=== PATIENT | male | born 2000 | race Caucasian/White ===

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

== ENCOUNTER 2022-05-06 08:38 | Emergency (ER) | payer OTHER ==
[2022-05-06 08:46] VITALS: BP 115/75; PULSE 83; TEMP 99.2; BMI 22.9
[2022-05-06 08:47] VITALS: RESP 18
[2022-05-06] MEDS ORDERED: DEXAMETHASONE SOD PHOSPHATE 10 MG/1 ML VIAL PO ONE (08:57)
[2022-05-06] MEDS ORDERED: IBUPROFEN 600 MG TABLET (FP) PO ONE ×2 (08:57→08:59)
[2022-05-06] MEDS ORDERED: DEXAMETHASONE 4 MG TABLET (FP) ONE (09:00)
== END 2022-05-06 09:17 | disposition home or self-care (01) ==
LOC: FER 08:38
DX: B34.9 Viral infection, unspecified (principal)
CPT/HCPCS: 0241U-QW; 99283-25; J1100

== ENCOUNTER 2022-07-31 08:41 | Emergency (ER) | payer OTHER ==
[2022-07-31 08:51] VITALS: BP 116/61; PULSE 79; RESP 18; BMI 23.6
[2022-07-31] MEDS ORDERED: NAPROXEN 500 MG TABLET PO ONE (09:05)
[2022-07-31] MEDS ORDERED: DEXAMETHASONE 4 MG TABLET (FP) PO STA (09:05)
[2022-07-31] MEDS ORDERED: PENICILLIN V POTASSIUM 500 MG TABLET PO ONE (09:08)
[2022-07-31] MEDS ORDERED: DEXAMETHASONE 4 MG TABLET (FP) ONE (09:16)
[2022-07-31] MEDS ORDERED: NAPROXEN 500 MG TABLET ONE (09:16)
[2022-07-31 12:26] LABS: THROAT:GRP A STREP DETECTED (NOTDETECTED)
== END 2022-07-31 09:59 | disposition home or self-care (01) ==
LOC: FER 08:41
DX: J02.0 Streptococcal pharyngitis (principal); Z20.822 Contact with and (suspected) exposure to COVID-19
CPT/HCPCS: 0241U-QW; 87651; 99283-25

== ENCOUNTER 2022-08-02 09:24 | Emergency (ER) | payer OTHER ==
[2022-08-02 09:29] VITALS: BP 135/89; PULSE 86; RESP 18; TEMP 98.5; BMI 23.6
== END 2022-08-02 11:37 | disposition home or self-care (01) ==
LOC: JERFT 09:24 → JER 09:24 → JERFT 11:37
DX: J02.0 Streptococcal pharyngitis (principal); R09.89 Other specified symptoms and signs involving the circulatory and respiratory systems
CPT/HCPCS: 72050-TC-FY; 99283-25

== ENCOUNTER 2023-01-21 18:24 | Emergency (ER) | payer OTHER ==
[2023-01-21 18:51] VITALS: BP 122/84; PULSE 85; RESP 17; TEMP 98.1; BMI 24.3
[2023-01-21] MEDS ORDERED: BACITRACIN ZINC 15 GM TUBE TOPICAL OINTMENT ONE (19:05)
== END 2023-01-21 20:54 | disposition home or self-care (01) ==
LOC: JERFT 18:24
DX: S62.174A Nondisplaced fracture of trapezium [larger multangular], right wrist, initial encounter for closed fracture (principal); S63.104A Unspecified dislocation of right thumb, initial encounter; V28.09XA Other motorcycle driver injured in noncollision transport accident in nontraffic accident, initial encounter
CPT/HCPCS: 73130-TC-RT-FY; 73140-TC-RT-FY